=== PATIENT | female | born 1970 | race Caucasian/White ===

== ENCOUNTER 2020-09-11 11:41 | Day surgery (SDC) | payer OTHER ==
[2020-09-05 16:48] VITALS: BMI 36.8
[2020-09-11] MEDS ORDERED: BSS (NA/CA/MG/K) BALANCED SALT SOLUTION OPHTH SOLN 15 ML BOTTLE ONE (13:09)
[2020-09-11] MEDS ORDERED: MIDAZOLAM HCL 2 MG/2 ML SINGLE DOSE VIAL ONE (13:30)
[2020-09-11] MEDS ORDERED: oxyCODONE HCL 5 MG TABLET PO PRN (13:36)
[2020-09-11] MEDS ORDERED: ONDANSETRON 4 MG/2 ML VIAL IVPUSH PRN (13:36)
[2020-09-11] MEDS ORDERED: LACTATED RINGERS SOLUTION 1,000 ML IV SCH (13:45)
[2020-09-11] MEDS ORDERED: PROPOFOL 20 ML ONE ×2 (14:04→14:16)
[2020-09-11] MEDS ORDERED: ONDANSETRON 4 MG/2 ML VIAL ONE ×2 (14:08→16:04)
[2020-09-11] MEDS ORDERED: ceFAZolin SODIUM 1 GM VIAL ONE (14:08)
[2020-09-11] MEDS ORDERED: DEXAMETHASONE SOD PHOSPHATE 4 MG/1 ML VIAL ONE (14:08)
[2020-09-11 16:46] VITALS: TEMP 97.6
[2020-09-11 17:25] VITALS: BP 149/89; PULSE 76
== END 2020-09-11 17:15 | disposition home or self-care (01) ==
LOC: FASU 11:41
PROVIDERS: ATTEND Orthopaedic Surgery Hand Surgery
PROC: 0MQ70ZZ Repair Right Hand Bursa and Ligament, Open Approach (ICD-10-PCS; principal; 2020-09-11 14:19)
DX: S63.652A Sprain of metacarpophalangeal joint of right middle finger, initial encounter (principal); X58.XXXA Exposure to other specified factors, initial encounter; Y93.9 Activity, unspecified; Y92.9 Unspecified place or not applicable
CPT/HCPCS: 84703; 94760